=== PATIENT | female | born 1960 | race Caucasian/White ===

== ENCOUNTER → 2016-12-17 | Outpatient (CLI) | payer OTHER ==
[~2016-12-17] MED LIST: ALPR0.254 PO; ATOR40TA78 PO; CHOL20003 PO; ESCI10TA PO; FLUO20CA19; FLUO40CA2 PO; LANS30CA PO; LEVO112T25 PO; LEVO125T; OLME20TA PO; OXYC5TAB2 PO; PROC10TA78 PO; THYR30TA PO; THYR60TA PO; TRAM50TA2 PO; VALA1000 PO; ZOLP10TA5 PO
== END | disposition home or self-care (01) ==
LOC: CFH 08:12
PROVIDERS: ATTEND Nurse Practitioner
DX: M50.321 Other cervical disc degeneration at C4-C5 level (principal); M50.322 Other cervical disc degeneration at C5-C6 level; M50.31 Other cervical disc degeneration, high cervical region; M48.02 Spinal stenosis, cervical region; M47.892 Other spondylosis, cervical region; M25.78 Osteophyte, vertebrae
CPT/HCPCS: 72141

== ENCOUNTER → 2017-01-01 | Outpatient (CLI) | payer OTHER ==
[2017-01-01 13:08] LABS: HIV-1 p24 ANTIGEN Nonreactive (Nonreactive)
[2017-01-01 13:11] LABS: HIV 1&2 ANTIBODY SCREEN Nonreactive (Nonreactive)
== END | disposition home or self-care (01) ==
LOC: LAB 12:26
PROVIDERS: ATTEND Internal Medicine Hematology & Oncology
DX: Z11.4 Encounter for screening for human immunodeficiency virus [HIV] (principal)
CPT/HCPCS: 36415; 86703; 86706; 87899; G0435